=== PATIENT | female | born 2000 ===

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

== ENCOUNTER 2023-12-20 07:26 | Emergency (ER) | payer OTHER, SELFPAY ==
--- NOTE | 2023-12-20 07:37 | CT_ITS ---
WS: [id number] CT HEAD TECHNIQUE: Noncontrast CT of the head obtained from the skullbase to the vertex. CLINICAL INFORMATION: Trauma COMPARISON: None. DLP: 1160.[address] scans at [facility] use at least one of these dose optimization techniques: automated e xposure control; mA and/or kV adjustment per patient size (includes targeted exams where dose is matc hed to clinical indication); or iterative reconstruction. FINDINGS: No evidence of intracranial hemorrhage or mass effect. Ventricular system and basal cisterns are giraldo nt. No extra-axial fluid collections. No evidence of mass or mass effect. Normal junior-white different iation. Paranasal sinuses and mastoid air cells are well aerated. .Soft tissue edema overlying the RIGHT radha etal lobe. No visualized fractures. IMPRESSION: 1. No evidence of intracranial hemorrhage or mass effect. 2. No acute intracranial findings.
--- NOTE | 2023-12-20 07:37 | CT_ITS ---
WS: [id number] CT CERVICAL TRAUMA TECHNIQUE: Noncontrast CT of the cervical spine with coronal and sagittal reformatted images. CLINICAL INFORMATION: Trauma COMPARISON: None. DLP: 1160.[address] scans at [facility] use at least one of these dose optimization techniques: automated e xposure control; mA and/or kV adjustment per patient size (includes targeted exams where dose is matc hed to clinical indication); or iterative reconstruction. FINDINGS: Reversal of the normal cervical lordosis. Normal craniocervical junction. Normal C1-C2 articulation. Dens is normal in appearance. Normal occipital condyles. 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 No hig h-grade spinal canal narrowing. Normal C1 ring. No evidence of acute fracture or dislocation. Normal prevertebral soft tissues. Mastoids air cells are well aerated. IMPRESSION: 1. No evidence of acute fracture or dislocation. 2. Reversal normal cervical lordosis. 3. Congenital segmentation anomaly C2-C3 4. Slight anterior wedging C4 likely chronic. 5. Slight anterolisthesis C4 on C5.
[2023-12-20 07:38] VITALS: BP 130/82; PULSE 82; TEMP 36.9; O2SAT 98; BMI 19.4
--- NOTE | 2023-12-20 07:38 | ED_ITS ---
HPI - Head Injury General: Chief complaint: Head Injury Stated complaint: Fell hit head Time Seen by Provider: 12/20/23 07:27 Source: patient Mode of arrival: ambulatory History of Present Illness: 23-year-old female presents to the [facility] ency room after falling. She slipped and fell on the ice landed backwards hit the right side of her head. No loss of consciousness she is not on any anticoagulants. She has been a little dizzy and has some right-sided facial numbness. Denies any other injuries MD Complaint: head injury Onset (ago): minute(s) Mechanism of Injury: fall Place: home Loss of Consciousness: no Location of injury: occipital (Right lateral) Quality: throbbing Radiation: none Other Injuries: none Associated symptoms: Deny amnesia, confusion, nausea, neck pain, numbness, syncope, tingling, vertigo, visual changes, vomiting or weakness Review of Systems Const: Denies: fever(s) or chills Card: Denies: chest pain or syncope Resp: Denies: dyspnea GI: Denies: abdominal pain, nausea or vomiting : Denies: dysuria, urinary frequency or urinary urgency Musc: Denies: neck pain or back pain Skin/Breast: Denies: rash Neuro: Denies: vertigo or confusion Physical Exam Const: COMMON NORMALS: no acute distress GENERAL APPEARANCE: cooperative and comfortable ORIENTATION/CONSCIOUSNESS: Yes awake, Yes oriented to person, Yes oriented to place and Yes oriented to time HENMT: COMMON NORMALS: normocephalic, atraumatic and hearing grossly normal bilaterally HEAD & SCALP: normocephalic and atraumatic Resp: COMMON NORMALS: normal respiratory effort, No retractions, No use of accessory muscles and clear to auscultation bilaterally AUSCULTATION: clear to auscultation bilaterally Cardio: COMMON NORMALS: regular rate, regular rhythm and No murmurs present (Cardio) RATE: regular rate RHYTHM: regular rhythm GI: COMMON NORMALS: Soft to palpation and No hepatosplenomegaly present AUSCULTATION: Yes normoactive bowel sounds PALPATION: Yes Soft to palpation, No Tenderness to palpation present (GI), No Guarding due to palpation present (GI) and Yes No hepatosplenomegaly present Extremity: COMMON NORMALS: normal to inspection, capillary refill normal, no clubbing, cyanosis or edema, no calf tenderness and no pedal edema Neuro: SENSORIUM/ORIENTATION: Yes oriented to person, Yes oriented to place and Yes oriented to time Skin: COMMON NORMALS: no rashes or lesions noted GENERAL SKIN EXAM: no rashes or lesions noted Course Vital Signs: Vital signs: Vital Signs Temperature 98.5 F 12/20/23 07:38 Pulse Rate 82 12/20/23 07:38 Blood Pressure 130/82 12/20/23 07:38 Pulse Oximetry 98 12/20/23 07:38 Oxygen Delivery Me thod Room Air 12/20/23 07:38 MDM - Head Injury Medcial Decision Making CT head and neck negative neurologically intact. Mild concussion discharge home follow-up as needed. Routine precautions and warnings given for concussion. Medical Records I reviewed the patient's medical records. Lab Data I reviewed the patient's lab results. All radiology interpretation(s) finalized by discharge Discharge Plan Discharge Patient Disposition: Home Clinical Impression: Closed head injury, Concussion without loss of consciousness Condition: Stable Discharge Orders: Discharge ED (Routine); Ordered 12/20/23 Ordered By: Kenny Bates Discharge Diet: Usual diet Discharge Activity: Resume usual activity Patient Instructions: Concussion (ED), Opioid Safety, Pain Management Activity Restrictions/Additional Instructions: Thank you for choosing [facility] for your healthcare needs today. Please realize this is an emergency room and that we are providing you with a medical screening exam and this may not be complete and all inclusive of all the testing and or work up that you may need to determine your ailment or severity of your illness. It is very important that you follow up as instructed or that you return to the Emergency Department should you have concerns or if your condition changes or worsens in any way. 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
--- NOTE | 2023-12-20 09:12 | PC.NURSE ---
posterior scalp repair using apprx 5 elio. Sterile water used for irrigation and cleansing
== END 2023-12-20 09:27 | disposition home or self-care (01) ==
PROVIDERS: Emergency Provider Family Medicine
DX: S06.0X0A Concussion without loss of consciousness, initial encounter (principal); W00.9XXA Unspecified fall due to ice and snow, initial encounter
CPT/HCPCS: 70450; 72125; 99284

== ENCOUNTER → 2024-02-01 15:00 | Outpatient (BNVA) | payer OTHER, SELFPAY | PROVIDERS: Visit Provider Nurse Practitioner Women's Health | DX: Z12.4 Encounter for screening for malignant neoplasm of cervix (principal); Z11.3 Encounter for screening for infections with a predominantly sexual mode of transmission; N92.6 Irregular menstruation, unspecified | CPT/HCPCS: 84702; 86592; 86803; 87340; 87491; 87591; 87806; 88175 ==